=== PATIENT | female | born 1965 | race Caucasian/White ===

== ENCOUNTER 2016-09-16 08:08 | Emergency (ER) | payer BC, OTHER ==
[2016-09-16 08:36] VITALS: BP 133/94
--- NOTE | 2016-09-16 08:43 | UC ---
Complaint Female HPI - HPI Summary HPI Summary: Pt presents to with 2 days of dysuria, frequency, and malodor to urine. Pt with tactile temp on Saturday evening. No nausea. mild low back pain. No vaginal discharge, odor, itching. Pt took Motrin and + po water. No other concerns. Last UTI > 20 years. Pt reports does get yeast infections with Abx. Not immunocompromised. Pt's medications reviewed at this visit. - History Of Current Complaint Chief Complaint: UCGU Stated Complaint: URINARY Time Seen by Provider: 09/16/16 08:15 Hx Obtained From: Patient Hx Last Menstrual Period: 3 weeks ago ?: No Onset/Duration: Gradual Onset Timing: Constant Severity Initially: Mild Severity Currently: Mild Pain Intensity: 3 Aggravating Factor(s): Urination Alleviating Factor(s): Meds Associated Signs And Symptoms: Positive: Fever, Back Pain. Negative: Vaginal Bleeding/Discharge, Vaginal Discharge, Nausea - Allergies/Home Medications Allergies/Adverse Reactions: Allergies Allergy/AdvReac Type Severity Reaction Status Date / Time opioids Allergy Dizziness Uncoded 09/16/16 08:20 seasonal Allergy Congestion Uncoded 09/16/16 08:20 Home Medications: Home Medications Cetirizine* [ZyrTEC 10 MG TAB*] 09/16/16 [History] Ibuprofen [Ibuprofen 200 MG] 600 mg PO 09/16/16 [History] PMH/Surg Hx/FS Hx/Imm Hx Cardiovascular History Of: Denies: Cardiac Disorders Respiratory History Of: Reports: Asthma - Surgical History Surgical History: Yes Surgery Procedure, Year, and Place: tubal 1996 with blood transfusion - Family History Known Family History: Positive: Hypertension - Social History Alcohol Use: Occasionally Substance Use Type: None Smoking Status (MU): Never Smoked Tobacco Review of Systems Constitutional: Fever Skin: Negative Eyes: Negative ENT: Negative Respiratory: Negative Cardiovascular: Negative Gastrointestinal: Negative Genitourinary: Dysuria, Frequency, Urgency Motor: Negative Neurovascular: Negative Musculoskeletal: Negative Neurological: Negative Psychological: Negative All Other Systems Reviewed And Are Negative: Yes Physical Exam Triage Information Reviewed: Yes Vital Signs: Initial Vital Signs Temp 97.3 F 09/16/16 08:15 Pulse 63 09/16/16 08:15 Resp 18 09/16/16 08:15 BP 133/94 09/16/16 08:15 Pulse Ox 99 09/16/16 08:15 Eye Exam: Normal ENT Exam: Normal ENT: Positive: Normal ENT inspection, Pharynx normal, TMs normal Dental Exam: Normal Neck exam: Normal Neck: Positive: Supple, Nontender, No Lymphadenopathy Respiratory Exam: Normal Respiratory: Positive: Normal breath sounds Cardiovascular Exam: Normal Cardiovascular: Positive: RRR, No Murmur, Pulses Normal Abdomen Description: Negative: Nontender - mild suprapubic No CVA b/l Bowel Sounds: Positive: Present Musculoskeletal Exam: Normal Neurological Exam: Normal Neurological: Positive: Alert Psychological Exam: Normal Skin Exam: Normal Complaint Female Dx - Course Course Of Treatment: Pt with dysuria, frequent, urgency x 2 days. tactile temp. mild suprapubic pain. + UTI. will give cipro. pt declined pyridium. hydrate. motrin/apap. urine culture. fluconazole x 1 dose as needed - Differential Dx/Diagnosis Provider Diagnoses: uti Discharge - Discharge Plan Condition: Stable Disposition: HOME Prescriptions: Ciprofloxacin HCl [Cipro 500 MG TAB] 500 mg PO BID #10 tab Patient Education Materials: Urinary Tract Infection in Women (ED) Referrals: No Primary Care Phys,NOPCP [Primary Care Provider] - Additional Instructions: - stay well hydrated. Drink plenty of non-alcoholic, non-caffinated beverages - Take antibiotic as prescribed until gone. - your urine has been sent for additional testing. If you need a different antibiotic - you will receive a call from a member of your care team - Okay to alternate ibuprofen (Advil, motrin) and tylenol every 3 hours for pain. Take with food Call your doctor or return with questions or concerns
--- NOTE | 2016-09-18 11:31 | UC ---
Progress - Progress Note Progress Note: please call the pt. with the culture results , I think Macrobid might work better for this infection stop cipro , start Macrobid 2 x per day for 7 days
== END 2016-09-16 08:56 | disposition home or self-care (01) ==
LOC: UCCORT 08:08
DX: N39.0 Urinary tract infection, site not specified (principal); Z88.5 Allergy status to narcotic agent; J45.909 Unspecified asthma, uncomplicated
CPT/HCPCS: 81003; 87077; 87086; 87186; 99212; G0463

== ENCOUNTER 2016-12-26 07:19 | Emergency (ER) | payer BC ==
[2016-12-26 07:35] VITALS: BP 131/81
[2016-12-26] MEDS ORDERED: Ketorolac INJ* 30 MG/ML 1 ML VIAL IM ONE (07:55)
[2016-12-26] MEDS ORDERED: Ondansetron TAB* 4 MG PO ONE (07:55)
--- NOTE | 2016-12-26 08:00 | UC ---
Abdominal Pain Female HPI - HPI Summary HPI Summary: Hx of kidney stone 15 years ago and this feels similar but less painful. Yesterday she had nausea, flank pain, difficulty urinating and blood in urine. No dysuria, vomiting or fever. - History of Current Complaint Chief Complaint: UCGU Stated Complaint: URINARY COMPLAINT Time Seen by Provider: 12/26/16 07:29 Hx Obtained From: Patient Hx Last Menstrual Period: 11/04/16 spotting Onset/Duration: Gradual Onset, Lasting Hours Timing: Constant Severity Initially: Moderate Severity Currently: Mild Location: Other - right flank and suprapubic. Radiates to: Flank Character: Aching Aggravating Factor(s): Nothing Alleviating Factor(s): Nothing Associated Signs and Symptoms: Positive: Decreased Appetite, Nausea. Negative: Diaphoresis, Fever, Chest Pain, Blood in Stool, Vomiting Allergies/Adverse Reactions: Allergies Allergy/AdvReac Type Severity Reaction Status Date / Time opioids Allergy Dizziness Uncoded 12/26/16 07:35 seasonal Allergy Congestion Uncoded 12/26/16 07:35 PMH/Surg Hx/FS Hx/Imm Hx Previously Healthy: No - prior kidney stone and prior uti. - Surgical History Surgical History: Yes Surgery Procedure, Year, and Place: tubal 1996 with blood transfusion - Family History Known Family History: Positive: Hypertension - Social History Alcohol Use: Rare Substance Use Type: None Smoking Status (MU): Never Smoked Tobacco Review of Systems Gastrointestinal: Abdominal Pain Genitourinary: Hematuria All Other Systems Reviewed And Are Negative: Yes Physical Exam Triage Information Reviewed: Yes Appearance: Well-Appearing, No Pain Distress, Well-Nourished Vital Signs: Initial Vital Signs Temp 98.6 F 12/26/16 07:25 Pulse 59 12/26/16 07:25 Resp 18 12/26/16 07:25 BP 131/81 12/26/16 07:25 Pulse Ox 100 12/26/16 07:25 Vital Signs Reviewed: Yes Eye Exam: Normal ENT Exam: Normal Neck exam: Normal Respiratory Exam: Normal Cardiovascular Exam: Normal Abdomen Description: Positive: No Organomegaly, Soft, Other: - suprapubic tenderness.. Negative: CVA Tenderness (R), CVA Tenderness (L), Distended, Guarding Musculoskeletal Exam: Normal Neurological Exam: Normal Psychological Exam: Normal Skin Exam: Normal Abd Pain Female Course/Dx - Course Course Of Treatment: right flank pain and lower abd pain. symptoms and history c /w stone. we will get ct and labs. We have considered other disease and appendicitis. There are no signs of infection. CT shows stone in right kidney but not in ureter. history still suggests stone that may have passed. with diverticulitis also a possibility, we will start augmentin. she agrees to return for any worsening. - Differential Dx/Diagnosis Differential Diagnosis: Appendicitis, Constipation, Diverticulitis, Ectopic , Gall Bladder Disease, Hepatitis, Irritable Bowel Syndrome, Pelvic Inflammatory Disease, Peptic Ulcer Disease, Pneumonia, , Renal Colic, Urinary Tract Infection Provider Diagnoses: right flank pain. kidney stone. possible diverticulitis. Discharge - Discharge Plan Condition: Good Disposition: HOME Prescriptions: Amoxicillin/Clavulanate TAB* [Augmentin TAB 875*] 875 mg PO BID #20 tab Patient Education Materials: Flank Pain (ED), Diverticulitis (ED) Referrals: No Primary Care Phys,NOPCP [Primary Care Provider] - Earl Sibley MD [Medical Doctor] - Additional Instructions: return for any worsening.
--- NOTE | 2016-12-26 08:28 | RAD ---
CLINICAL HISTORY: Flank pain, right abdominal pain COMPARISON: None TECHNIQUE: Multiple contiguous axial CT scans were obtained of the abdomen and pelvis, without intravenous contrast enhancement. Coronal and sagittal multiplanar reformations are submitted for review. Oral contrast was not administered. FINDINGS: The study is limited by the lack of intravenous contrast. This limits evaluation of the solid organs and vasculature. LUNG BASES: The lung bases are clear. LIVER: The liver is diffusely low in attenuation compared to the spleen. There are no focal hepatic parenchymal masses. Liver measures 20 cm in long axis. BILE DUCTS: There is no intrahepatic or extrahepatic biliary dilatation. GALLBLADDER: The gallbladder is normal, without pericholecystic inflammatory change. PANCREAS: The pancreas is normal, without mass or ductal dilatation. SPLEEN: Normal in size and appearance. UPPER GI TRACT: Evaluation of the gastrointestinal tract is limited by incomplete gastric distention. The upper GI tract is unremarkable. SMALL BOWEL AND MESENTERY: The small bowel is normal in contour, course, and caliber. There is no obstruction or dilatation. COLON: There are multiple diverticula of the sigmoid colon. There is inflammatory change around a diverticulum of sigmoid colon best seen on axial image 135. There is no loculated fluid collection to suggest abscess. ADRENALS: Normal bilaterally. KIDNEYS: There is a punctate nonobstructing right renal calyceal stone, measuring 0.1 cm. This is best seen on axial image 50. There is an exophytic simple cyst of the left kidney. BLADDER: The bladder is collapsed and is not well evaluated. PELVIC ORGANS: The uterus and adnexa are grossly normal for technique. AORTA: The aorta is normal. IVC: Unremarkable LYMPH NODES: There is no lymphadenopathy by size criteria. ABDOMINAL WALL: There is no evidence for abdominal wall hernia. BONES AND SOFT TISSUES: There are mild diffuse degenerative changes. OTHER: None IMPRESSION: 1. SIGMOID DIVERTICULITIS, WITHOUT LOCULATED FLUID COLLECTION TO SUGGEST ABSCESS. 2. PUNCTATE INTRARENAL CALYCEAL STONE. 3. HEPATOMEGALY WITH FATTY INFILTRATION OF THE LIVER
[2016-12-26] MEDS ORDERED: Ondansetron ODT TAB* 4 MG ONE (08:45)
[2016-12-26 13:24] LABS: Hematocrit 38 % (35-47); Hemoglobin 12.8 g/dl (12.0-16.0); Mean Corpuscular HGB Conc 33 g/dl (31-36); Mean Corpuscular Hemoglobin 29 pg (27-31); Mean Corpuscular Volume 86 fL (80-97); Mean Platelet Volume 9 um3 (7.4-10.4); Red Blood Count 4.43 10^6/ul (4.0-5.4); Red Cell Distribution Width 14 % (10.5-15); White Blood Count 6.5 10^3/ul (3.5-10.8)
[2016-12-26 13:41] LABS: Albumin 4.3 g/dL (3.2-5.2); BUN/Creatinine Ratio 24.2 (8-20); Calcium 9.1 mg/dL (8.6-10.3); EGFR African American 130.5 (>60); EGFR Non-African American 101.5 (>60); Globulin 2.5 g/dL (2-4); Potassium 4.7 mmol/L (3.5-5.0); Total Bilirubin 0.4 mg/dL (0.2-1.0); Total Protein 6.8 g/dL (6.4-8.9)
== END 2016-12-26 09:05 | disposition home or self-care (01) ==
LOC: UCCORT 07:19
DX: R10.30 Lower abdominal pain, unspecified (principal); N20.0 Calculus of kidney; K57.32 Diverticulitis of large intestine without perforation or abscess without bleeding; R11.0 Nausea; Z87.442 Personal history of urinary calculi; Z87.440 Personal history of urinary (tract) infections
CPT/HCPCS: 36415; 74176; 80053; 81003; 85025; 87077; 87086; 99212; A9270-GY; G0463

== ENCOUNTER 2017-12-01 07:00 | Emergency (ER) | payer BC ==
[2017-12-01 07:20] VITALS: BP 150/90
--- NOTE | 2017-12-01 07:25 | UC ---
General HPI - HPI Summary HPI Summary: Patient presents to the urgent care center with discomfort in her left jaw that started yesterday. Patient states she feels like it's deep under toothbrushes have any tooth pain. Patient states she's got some radiation under her jaw towards her left ear. Patient denies temperature-sensitive ear pain with palpation chewing. Patient states she took Tylenol approximately with this morning with little relief. No bad taste in her mouth. No difficulty swallowing. No oral edema. Patient has chest pain or shortness of breath. No abdominal pain. No nausea vomiting. No diaphoresis. Patient without a history of hypertension, cholesterol, cardiac disease. Patient had a stress test. Patient without family history of cardiac hx. Pt does not smoke. Pt states she has an appt with a PCP in approx 1 month for persistent bradycardia - not symptomatic. Pt states she wore a holter monitor that did not show anything except slow rate, "about 45." Patient states she really feels like it' s tooth with tooth does not hurt. Patient's medications reviewed this visit - History of Current Complaint Stated Complaint: DENTAL Time Seen by Provider: 12/01/17 07:14 Hx Obtained From: Patient Hx Last Menstrual Period: 11/04/16 spotting Onset/Duration: Gradual Onset Onset Severity: Mild Current Severity: Mild - Allergy/Home Medications Allergies/Adverse Reactions: Allergies Allergy/AdvReac Type Severity Reaction Status Date / Time Opioids - Morphine Analogues Allergy Nausea Verified 12/01/17 07:09 opioids Allergy Dizziness Uncoded 12/01/17 07:09 seasonal Allergy Congestion Uncoded 12/01/17 07:09 Home Medications: Home Medications Acetaminophen [Mapap] 1,000 mg PO ONCE PRN 12/01/17 [History Confirmed 12/01/17] Naproxen Sodium [Naproxen 220 mg] 2 tab PO DAILY PRN 12/01/17 [History Confirmed 12/01/17] PMH/Surg Hx/FS Hx/Imm Hx Previously Healthy: Yes - Surgical History Surgical History: Yes Surgery Procedure, Year, and Place: tubal 1996 with blood transfusion - Family History Known Family History: Positive: Hypertension - Social History Alcohol Use: Rare Substance Use Type: None Smoking Status (MU): Never Smoked Tobacco Review of Systems Constitutional: Negative ENT: Other - left jaw pain All Other Systems Reviewed And Are Negative: Yes Physical Exam - Summary Physical Exam Summary: Vital Signs Reviewed: Yes A+Ox3, no distress Eyes: Conjunctiva Clear, TITI. EOM intact and full ENT: Hearing grossly normal TM x 2 clear, turbinates wnl. Pt with mmoist, uvula midline, no exudate, no erythema no erythema. small left tonisillar stone no exudate, uvula midline Pt with filling #19 pt with mild erythema and fullness at buccal gumline. no fluctuance. None tender. Pt with mild discomfort with gentle palpation under tongue, left side along salivary tract. nopalpable or visible stone mild fullness. No fluctucance no trismus Neck: Positive: Supple, full AROM without difficulty Pt with mild discomfort left submandibular area with gentle, deep palpation. No lymphadenopathy Respiratory: Positive: No respiratory distress, No accessory muscle use + CTA throughout no w/r Cardiovascular: RRR nl s1, s2 no m/r CBT <2 sec abd soft + BS nt/nd no guarding, no distension Musculoskeletal Exam: BOWEN x 4 without difficulty Strength Intact, ROM Intact Neurological: Positive: Alert, + sensation throughout Psychological: Positive: Normal Response To Family Skin: Positive: no rash, no ecchymosis Triage Information Reviewed: Yes Diagnostics - EKG Cardiac Rate: Bradycardia - 47 Cardiac Rhythm: Sinus: Normal Ectopy: None ST Segment: Normal Course/Dx - Course Course Of Treatment: Patient presents with left-sided submandibular jaw pain for 24 hours. Patient took Tylenol without relief. Patient denies any saúl dental pain. Patient states it feels like it's under her jaw or deep to tooth and radiates to her left ear and to the superior lateral aspect of her neck. Patient without fevers or chills. Patient alleviated Tylenol. On exam, patient with slight fullness in the floor from the left side under her tongue. Little bit discomfort along salivary tract. Patient also noted to have some mild edema and erythema to the #21 tooth. No fluctuance. left ear looks within normal limits. EKG was done because patient said some radiation of pain. No acute changes. EKG reveals bradycardia but otherwise not concerning. Patient with a diagnosis of bradycardia is currently being worked up. 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 Suspect this is the likely cause. However, given the physical findings of the tooth in the setting of a filling Will put patient on amoxicillin. Recommend moist heat. Reviewed with patient Motrin Tylenol dosing. It reminded patient cannot take Aleve with Motrin. Patient placed on amoxicillin 7. Warm salt water swish and spit. He to the outside. Recommend patient sucking sour drops. Follow up with PCP. Strict return precautions. Patient comfortable agreement play.. Patient's vital signs were reviewed and normal. Patient was not noted to have any airway concerns at this time. - Differential Dx - Multi-Symptom Provider Diagnoses: sialadenitis. dental infection Discharge - Sign-Out/Discharge Documenting (check all that apply): Patient Departure - Discharge Plan Condition: Stable Disposition: HOME Prescriptions: Amoxicillin PO (*) [Amoxicillin 875 MG (*)] 875 mg PO BID #20 tab Fluconazole [Diflucan 150 MG (NF)] 150 mg PO ONCE PRN #1 tab PRN Reason: vaginal yeast infection Patient Education Materials: Sialoadenitis (ED), Toothache (ED) Referrals: Clementine Keenan MD [Primary Care Provider] - Additional Instructions: - Okay to alternate ibuprofen (Advil, Motrin)600mg and Tylenol 1000mg 3 hours for pain or fever. Take with food. Do NOT take for more than 4-5 days. - Take antibiotics as prescribed until gone - Swish and spit with warm salt water - Is recommended you apply moist heat to the outside part of your neck 2-3 times a day. - It's a recommended that you suck on sour foods today this includes lemon drops , citrus foods, and other things to produce spit - you have been give a script for Diflucan - okay to take if you develop a yeast infection - Contact your doctor to schedule a follow-up appointment this week. Contact you doctor, return here, go to emergency Department with questions or concerns - Billing Disposition and Condition Condition: STABLE Disposition: Home
== END 2017-12-01 07:56 | disposition home or self-care (01) ==
LOC: UCCORT 07:00
DX: K11.20 Sialoadenitis, unspecified (principal); K04.7 Periapical abscess without sinus; Z88.4 Allergy status to anesthetic agent
CPT/HCPCS: 93005; 99212; G0463

== ENCOUNTER 2018-05-21 10:17 | Emergency (ER) | payer BC ==
[2018-05-21 10:29] VITALS: BP 139/78
[2018-05-21] MEDS ORDERED: Albuterol/Ipratropium NEB.SOL* Albuterol 2.5 MG/Ipratropium 0.5 MG 3 ML INH ONE ×2 (10:57→11:39)
[2018-05-21 11:33] LABS: Influenza A Molecular NEGATIVE (Negative); Influenza B Molecular NEGATIVE (Negative)
--- NOTE | 2018-05-21 11:36 | UC ---
Respiratory Complaint HPI - History of Current Complaint Chief Complaint: UCChestPain Stated Complaint: SOB/TIGHTNESS IN CHEST Time Seen by Provider: 05/21/18 10:37 Hx Last Menstrual Period: 05/21/18 Pain Intensity: 5 - Allergies/Home Medications Allergies/Adverse Reactions: Allergies Allergy/AdvReac Type Severity Reaction Status Date / Time Opioids - Morphine Analogues Allergy Nausea Verified 05/21/18 10:30 opioids Allergy Dizziness Uncoded 05/21/18 10:30 seasonal Allergy Congestion Uncoded 05/21/18 10:30 Home Medications: Home Medications Albuterol inh POWDER (NF) [Proair Respiclick] 1 puff INH ONCE PRN 05/21/18 [ History Confirmed 05/21/18] Levothyroxine TAB* [Synthroid TAB*] 50 mcg PO DAILY 05/21/18 [History Confirmed 05/21/18] PMH/Surg Hx/FS Hx/Imm Hx - Surgical History Surgical History: Yes Surgery Procedure, Year, and Place: tubal 1996 with blood transfusion - Family History Known Family History: Positive: Hypertension - Social History Alcohol Use: Rare Substance Use Type: None Smoking Status (MU): Never Smoked Tobacco Physical Exam Vital Signs: Initial Vital Signs Temp 97.6 F 05/21/18 10:21 Pulse 69 05/21/18 10:21 Resp 18 05/21/18 10:21 BP 139/78 05/21/18 10:21 Pulse Ox 98 05/21/18 10:21 UC Diagnostic Evaluation - Laboratory O2 Sat by Pulse Oximetry: 98 - Radiology Radiology Interpretation Completed By: Radiologist - Patient Name: CARLITO SKINNER Medical Record#: [id number] Discharge - Discharge Plan Referrals: Clementine Keenan MD [Primary Care Provider] -
[2018-05-21] MEDS ORDERED: Al Hydrox/Mg Hydrox/Simet LIQ* 30 ML UDC PO ONE (11:39)
== END 2018-05-21 12:20 | disposition home or self-care (01) ==
LOC: UCCORT 10:17
DX: R07.9 Chest pain, unspecified (principal); R06.02 Shortness of breath; Z88.5 Allergy status to narcotic agent; Z91.048 Other nonmedicinal substance allergy status
CPT/HCPCS: 71046; 99212; A9270-GY; G0463

== ENCOUNTER 2019-01-18 08:34 | Emergency (ER) | payer BC, OTHER ==
[2019-01-18 09:33] VITALS: BP 135/81
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
== END 2019-01-18 11:51 | disposition home or self-care (01) ==
LOC: UCCORT 08:34
DX: M54.6 Pain in thoracic spine (principal); R07.9 Chest pain, unspecified; R07.81 Pleurodynia
CPT/HCPCS: 71111; 72070; 81003; 99212; G0463

== ENCOUNTER 2019-02-03 17:35 | Emergency (ER) | payer BC ==
[2019-02-03 18:04] VITALS: BP 174/92
--- NOTE | 2019-02-03 18:32 | ED ---
Throat Pain/Nasal Congestion - HPI Summary HPI Summary: 54 yr old female with pain in the upper and lower left teeth jaw and face area where she had dental root canals last week. She notices her face is a little swollen, and she has pain in the left ear and with opening her jaw. No drooling , no stridor. No fever or chills. Pain is moderate. Her pain has been present since the local wore off after her dental proceedure. - History of Current Complaint Chief Complaint: UCDentalProblem Time Seen by Provider: 02/03/19 17:55 - Allergies/Home Medications Allergies/Adverse Reactions: Allergies Allergy/AdvReac Type Severity Reaction Status Date / Time Opioids - Morphine Analogues AdvReac Nausea Verified 02/03/19 18:04 seasonal Allergy Congestion Uncoded 02/03/19 18:04 opioids AdvReac Dizziness Uncoded 02/03/19 18:04 Home Medications: Home Medications Cephalexin CAP* [Keflex CAP*] 500 mg PO TID 02/03/19 [History Confirmed 02/03/19 ] Ibuprofen TAB* [Motrin TAB* 800 MG] 800 mg PO Q6H 02/03/19 [History Confirmed ] PMH/Surg Hx/FS Hx/Imm Hx Endocrine/Hematology History: Reports: Hx Thyroid Disease - PT STOPPED TAKING HER MED BECAUSE OF WEIGHT GAIN Respiratory History: Reports: Hx Asthma - Surgical History Surgery Procedure, Year, and Place: tubal 1996 with blood transfusion Infectious Disease History: No Infectious Disease History: Denies: Traveled Outside the [place] in Last 30 Days - Family History Known Family History: Positive: Hypertension, Non-Contributory - Social History Occupation: Employed Full-time Alcohol Use: Occasionally Substance Use Type: Reports: None Smoking Status (MU): Never Smoked Tobacco Review of Systems Constitutional: Negative Positive: Other - dental pain, swelling All Other Systems Reviewed And Are Negative: Yes Physical Exam Triage Information Reviewed: Yes Vital Signs On Initial Exam: Initial Vitals Temp Pulse Resp BP Pulse Ox 98.0 F 51 16 174/92 99 02/03/19 17:56 02/03/19 17:56 02/03/19 17:56 02/03/19 17:56 02/03/19 17:56 Vital Signs Reviewed: Yes Appearance: Positive: Well-Appearing, No Pain Distress Skin: Positive: Warm, Skin Color Reflects Adequate Perfusion Head/Face: Positive: Normal Head/Face Inspection Eyes: Positive: EOMI ENT: Positive: Pharynx normal, TMs normal, Other - tenderness over the upper and lower molars that were worked on for root canal a week ago. She opens and closes her jaw well. No dislocation. Intact sensation face. She has mild STS left side of face. No TMJ tenderness. Left TM normal.. Negative: Muffled voice, Hoarse voice Neck: Positive: Supple, Nontender, No Lymphadenopathy Respiratory/Lung Sounds: Positive: Clear to Auscultation Cardiovascular: Positive: RRR. Negative: Murmur Abdomen Description: Negative: Distended Musculoskeletal: Positive: Strength/ROM Intact Neurological: Positive: Sensory/Motor Intact, Alert, Oriented to Person Place, Time, CN Intact II-III, Normal Gait, Speech Normal Psychiatric: Positive: Normal Diagnostics - Vital Signs Vital Signs Temp Pulse Resp BP Pulse Ox 02/03/19 17:56 98.0 F 51 16 174/92 99 - Laboratory Lab Statement: Any lab studies that have been ordered have been reviewed, and results considered in the medical decision making process. EENT Course/Dx - Course Course Of Treatment: 54 yr old with dental pain. Rx with Augmentin. Referral to oral surgery and also she has a list of primary care doctors for follow up for her blood pressure. She has a list of dentists as well. She does not feel comfortable returning to her dentist. - Diagnoses Provider Diagnoses: Pain due to dental caries, Hypertension Discharge ED - Sign-Out/Discharge Documenting (check all that apply): Patient Departure All imaging exams completed and their final reports reviewed: No Studies - Discharge Plan Condition: Good Disposition: HOME Prescriptions: Amoxicillin/Clavulanate TAB* [Augmentin TAB 875*] 875 mg PO BID #20 tab Patient Education Materials: Toothache (ED), Hypertension (ED) Referrals: No Primary Care Phys,NOPCP [Primary Care Provider] - Daniel Lamb MD [Doctor of Dental Medicine] - 2 Days - Billing Disposition and Condition Condition: GOOD Disposition: Home
== END 2019-02-03 18:26 | disposition home or self-care (01) ==
LOC: UCCORT 17:35
DX: K02.9 Dental caries, unspecified (principal); I10 Essential (primary) hypertension; J45.909 Unspecified asthma, uncomplicated; Z88.5 Allergy status to narcotic agent; Z91.09 Other allergy status, other than to drugs and biological substances
CPT/HCPCS: 99212; G0463

== ENCOUNTER 2019-03-31 07:01 | Emergency (ER) | payer BC, OTHER ==
[2019-03-31 07:20] VITALS: BP 132/83
--- NOTE | 2019-03-31 07:48 | UC ---
Ear Complaint HPI - HPI Summary HPI Summary: left ear pain x 2 weeks pain is moderated 5 out of 10 worse with cold and touching the ear denies any cold symptoms , no fever, no chills, no hearing loss no hx of swimming - History of Current Complaint Chief Complaint: UCEar Stated Complaint: EAR PAIN BOTH EARS Time Seen by Provider: 03/31/19 07:13 Hx Obtained From: Patient Hx Last Menstrual Period: postmenapausal ?: No Onset/Duration: Gradual Onset, Lasting Weeks - 2, Still Present Severity Initially: Moderate Severity Currently: Moderate Pain Intensity: 8 Pain Scale Used: 0-10 Numeric Aggravating Factors: Cold Alleviating Factors: Nothing Associated Signs/Symptoms: Positive: Discharge. Negative: Hearing Loss, Foreign Body Sensation, Trauma to Ear, Swelling @, URI Symptoms - Allergies/Home Medications Allergies/Adverse Reactions: Allergies Allergy/AdvReac Type Severity Reaction Status Date / Time Opioids - Morphine Analogues AdvReac Nausea Verified 03/31/19 07:10 seasonal Allergy Congestion Uncoded 03/31/19 07:10 opioids AdvReac Dizziness Uncoded 03/31/19 07:10 Home Medications: Home Medications Ibuprofen TAB* [Advil TAB*] 600 mg PO Q6H PRN 03/31/19 [History Confirmed ] Loratadine/Pseudoephedrine [Claritin-D 24 Hour 10-240 mg] 1 tab PO DAILY PRN 07/15 [History Confirmed 03/31/19] PMH/Surg Hx/FS Hx/Imm Hx Endocrine History: Thyroid Disease Respiratory History: Asthma - Surgical History Surgical History: Yes Surgery Procedure, Year, and Place: tubal 1996 with blood transfusion - Family History Known Family History: Positive: Hypertension, Non-Contributory - Social History Alcohol Use: Occasionally Substance Use Type: None Smoking Status (MU): Never Smoked Tobacco Review of Systems All Other Systems Reviewed And Are Negative: Yes Constitutional: Positive: Negative Skin: Positive: Negative Eyes: Positive: Negative ENT: Positive: Ear Ache Respiratory: Positive: Negative Is Patient Immunocompromised?: No Physical Exam Triage Information Reviewed: Yes Appearance: Well-Appearing, No Pain Distress, Well-Nourished Vital Signs: Initial Vital Signs Temp 97.8 F 03/31/19 07:13 Pulse 73 03/31/19 07:13 Resp 15 03/31/19 07:13 BP 132/83 03/31/19 07:13 Pulse Ox 98 03/31/19 07:13 Vital Signs Reviewed: Yes Eye Exam: Normal Eyes: Positive: Conjunctiva Clear ENT: Positive: Normal ENT inspection, Hearing grossly normal, Pharynx normal, TM red - left ear, Other - erythema left ear canal , + left ear tenderness. Negative: Nasal drainage, TM bulging, TM dull Neck: Positive: Supple Respiratory Exam: Normal Cardiovascular: Positive: RRR Skin Exam: Normal Ear Complaint Course/Dx - Differential Dx/Diagnosis Provider Diagnosis: Otitis externa of left ear Discharge ED - Sign-Out/Discharge Documenting (check all that apply): Patient Departure All imaging exams completed and their final reports reviewed: No Studies - Discharge Plan Condition: Stable Disposition: HOME Prescriptions: Amoxicillin/Clavulanate TAB* [Augmentin TAB 875*] 875 mg PO BID #20 tab Neomyc/Polym/HC 1% OTIC SUSP* [Cortisporin Otic Susp 1%*] 4 drop BOTH EARS TID # 1 btl Patient Education Materials: Otitis Externa (ED) Referrals: No Primary Care Phys,NOPCP [Primary Care Provider] - 7 Days - Billing Disposition and Condition Condition: STABLE Disposition: Home
== END 2019-03-31 07:32 | disposition home or self-care (01) ==
LOC: UCCORT 07:01
DX: H60.92 Unspecified otitis externa, left ear (principal); J45.909 Unspecified asthma, uncomplicated; Z88.5 Allergy status to narcotic agent; Z91.09 Other allergy status, other than to drugs and biological substances
CPT/HCPCS: 99212; G0463

== ENCOUNTER 2019-07-27 08:20 | Emergency (ER) | payer BC ==
--- NOTE | 2019-07-27 08:47 | UC ---
Respiratory Complaint HPI - HPI Summary HPI Summary: Patient presents with a flare up of her asthma she thinks. Cough with wheezing. Started noticing about 2 weeks ago. Pollen was high and left windows open at night. Started using claritin. HX of asthmatic. Usually treats self at home. Started mucinex yesterday with steam and eucalyptis. No fever or sore throat. Yesterday whenever she drank water or ate food she started coughing. Concerned she may be aspirating. Had endoscopy years ago and suffers with acid reflux and her heartburn is getting worse. No known exposure to ramos. Feels like typical asthma problem. Sleeping in recliner. Concerned about mold exposure at home as this can turn into bronchitis some times. - History of Current Complaint Chief Complaint: UCGeneralIllness Stated Complaint: wheezing,cough Time Seen by Provider: 07/27/19 08:39 Hx Obtained From: Patient Hx Last Menstrual Period: postmenapausal Onset/Duration: Gradual Onset Timing: Constant Pain Intensity: 0 Character: Cough: Nonproductive Aggravating Factors: Allergens, Exertion Alleviating Factors: Bronchodilator Associated Signs And Symptoms: Negative: Dyspnea - Allergies/Home Medications Allergies/Adverse Reactions: Allergies Allergy/AdvReac Type Severity Reaction Status Date / Time Opioids - Morphine Analogues AdvReac Nausea Verified 07/27/19 08:34 seasonal Allergy Congestion Uncoded 07/27/19 08:34 opioids AdvReac Dizziness Uncoded 07/27/19 08:34 Home Medications: Home Medications Loratadine/Pseudoephedrine [Claritin-D 24 Hour 10-240 mg] 1 tab PO DAILY PRN 07/15 [History Confirmed 07/27/19] Albuterol 2.5MG/3ML (0.083%)* [Ventolin 2.5 MG/3 ML NEB.MARYANNE*] 2.5 mg INH Q6H # 30 neb.maryanne 07/27/19 [Rx] cefUROXime axetil [Cefuroxime] 250 mg PO BID #20 tablet 07/27/19 [Rx] guaiFENesin [Mucinex] 1,200 mg PO DAILY 07/27/19 [History Confirmed 07/27/19] PMH/Surg Hx/FS Hx/Imm Hx Previously Healthy: Yes - Surgical History Surgical History: Yes Surgery Procedure, Year, and Place: tubal 1996 with blood transfusion - Family History Known Family History: Positive: Hypertension, Non-Contributory - Social History Alcohol Use: Rare Substance Use Type: None Smoking Status (MU): Never Smoked Tobacco Review of Systems All Other Systems Reviewed And Are Negative: Yes Respiratory: Positive: Cough Psychological: Positive: Negative Physical Exam Triage Information Reviewed: Yes Appearance: Well-Appearing, No Pain Distress, Well-Nourished Vital Signs Reviewed: Yes Eye Exam: Normal ENT Exam: Normal Dental Exam: Normal Neck exam: Normal Neck: Positive: 1 Respiratory Exam: Normal Respiratory: Positive: Chest non-tender, Lungs clear, Normal breath sounds, No respiratory distress, No accessory muscle use. Negative: Respiratory distress Cardiovascular Exam: Normal Abdominal Exam: Normal Musculoskeletal Exam: Normal Neurological Exam: Normal Psychological Exam: Normal Skin Exam: Normal Respiratory Course/Dx - Course Course Of Treatment: patient with non productive cough for 2 weeks or so and it was brought on by her allergies. she requests albuterol as she has neb machine at home. no wheezing. she is concerned about if this worsens and albuterol does not help then she will need antibiotics so we will have some available but at this time appears mild allergic bronchitis at the most. benign exam. if any SOB / fever develops then go to ED. she is aware and agree to plan and SE of meds - Differential Dx/Diagnosis Differential Diagnosis/HQI/PQRI: Asthma, Bronchitis, Lower Resp Infection, Sinusitis Provider Diagnosis: URI (upper respiratory infection) Discharge ED - Sign-Out/Discharge Documenting (check all that apply): Patient Departure All imaging exams completed and their final reports reviewed: No - Discharge Plan Condition: Good Disposition: HOME Prescriptions: Albuterol 2.5MG/3ML (0.083%)* [Ventolin 2.5 MG/3 ML NEB.MARYANNE*] 2.5 mg INH Q6H # 30 neb.maryanne cefUROXime axetil [Cefuroxime] 250 mg PO BID #20 tablet Patient Education Materials: Upper Respiratory Infection (ED) Referrals: No Primary Care Phys,NOPCP [Primary Care Provider] - If Needed - Billing Disposition and Condition Condition: GOOD Disposition: Home
[2019-07-27 09:01] VITALS: BP 125/77
--- NOTE | 2019-07-28 10:59 | UC ---
- Progress Note Progress Note: No imaging Course/Dx - Diagnoses Provider Diagnoses: URI (upper respiratory infection) Discharge ED - Sign-Out/Discharge Documenting (check all that apply): Post-Discharge Follow Up All imaging exams completed and their final reports reviewed: No Studies - Discharge Plan Condition: Good Disposition: HOME Prescriptions: Albuterol 2.5MG/3ML (0.083%)* [Ventolin 2.5 MG/3 ML NEB.MARYANNE*] 2.5 mg INH Q6H # 30 neb.maryanne cefUROXime axetil [Cefuroxime] 250 mg PO BID #20 tablet Patient Education Materials: Upper Respiratory Infection (ED) Referrals: No Primary Care Phys,NOPCP [Primary Care Provider] - If Needed - Billing Disposition and Condition Condition: GOOD Disposition: Home
== END 2019-07-27 09:25 | disposition home or self-care (01) ==
LOC: UCCORT 08:20
DX: J06.9 Acute upper respiratory infection, unspecified (principal); Z88.5 Allergy status to narcotic agent
CPT/HCPCS: 99212; G0463